=== PATIENT | female | born 1975 | race Caucasian/White ===

== ENCOUNTER 2019-03-17 12:37 | Emergency (ER) | payer MEDICAID ==
[~2019-03-17] VITALS: Ht 160 cm; Wt 114.4 kg
[~2019-03-17 12:37] MED LIST: BENA10TA25 PO
[2019-03-17 12:38] VITALS: BP 125/69
[2019-03-17 12:39] VITALS: BP 125/69
--- NOTE | 2019-03-17 12:50 | NUR ---
PATIENT AMBULATED TO BED 7.
--- NOTE | 2019-03-17 13:00 | NUR ---
43 Y FEMALE BIB FAMILY C/O INTERMITENT LOWER BACK PAIN X 3 MONTHS. DENIES TRAUMA OR INJURY. LOWER ABDOMINAL PAIN X 1 WEEK. DENIES N/V/D OR DYSURIA. LAST BM THIS AM, NORMAL. BOWEL SOUNDS ACTIVE IN ALL 4 QUADRANTS. ABDOMEN SOFT AND ROUND. VSS AT THIS TIME, AA0X4. PAIN 7/10. BED IS DOWN, LOCKED, BED RAIL X1, ERMD TO SEE PT. MED HX: HTN MED: BENAZEPRIL
--- NOTE | 2019-03-17 13:15 | NUR ---
DR CARDOZA AT BEDSIDE
--- NOTE | 2019-03-17 13:24 | NUR ---
LAB AT BEDSIDE
--- NOTE | 2019-03-17 13:26 | NUR ---
Patient taken to CT scan via wheelchair by tech.
--- NOTE | 2019-03-17 13:27 | NUR ---
PT BEING TAKEN TO CT VIA WHEELCHAIR
--- NOTE | 2019-03-17 13:36 | NUR ---
PT RETURNED FROM CT, AA0X4.
[2019-03-17 13:38] LABS: BILIRUBIN,URINE NEGATIVE (NEGATIVE); COLOR,URINE YELLOW (YELLOW); LEUKOCYTE ESTERASE ,URINE NEGATIVE (NEGATIVE); NITRITE, URINE NEGATIVE (NEGATIVE); UGLUCOSE NEGATIVE (NEGATIVE)
[2019-03-17 13:39] LABS: BASOPHILS % (AUTO) 0.5 % (0.0-2.0); EOSINOPHILS # (AUTO) 0.1 K/uL (0-0.4); EOSINOPHILS % (AUTO) 1.4 % (0.0-4.0); HEMATOCRIT 33.5 % (36-48); HEMOGLOBIN 11.2 g/dL (12.0-16.0); LYMPHOCYTES # (AUTO) 2.1 K/uL (2.5-16.5); LYMPHOCYTES % (AUTO) 22.9 % (20.5-51.1); MEAN CORPUSCULAR HEMOGLOBIN 29 pg (27-31); MEAN CORPUSCULAR HGB CONC 33 g/dL (33-37); MEAN CORPUSCULAR VOLUME 88.2 fL (80-94); MONOCYTES # (AUTO) 0.7 K/uL (0.8-1.0); MONOCYTES % (AUTO) 7.2 % (1.7-9.3); NEUTROPHILS # (AUTO) 6.4 K/uL (1.8-7.7); PLATELET COUNT (AUTO) 326 K/uL (140-450); RED CELL DISTRIBUTION WIDTH 14.5 % (11.6-13.7); WHITE BLOOD COUNT (AUTO) 9.4 K/uL (4.8-10.8)
[2019-03-17 13:48] LABS: APPEARANCE,URINE CLEAR (CLEAR); BLOOD, URINE 1+ (NEGATIVE); RBC,URINE 0-5 /HPF (0-5); WBC,URINE 0-5 /HPF (0-5)
[2019-03-17 14:11] LABS: ANION GAP 9.4 (8-16); CARBON DIOXIDE 29.6 mmol/L (21-32); CREATININE 0.7 mg/dL (0.6-1.3)
[2019-03-17 14:17] LABS: ALBUMIN 3.3 g/dL (3.4-5.0); TOTAL BILIRUBIN 0.3 mg/dL (0.0-1.0)
--- NOTE | 2019-03-17 14:42 | NUR ---
Patient discharged BY DR CARDOZA. Written and verbal after care instructions given and explained BY DR CARDOZA. Patient alert, oriented AND Ambulatory with steady gait. ID band removed. Rx of MILK OF MAGNESIA given.
--- NOTE | 2019-03-17 14:42 | NUR ---
Dr. Martinez re-evaluating patient at bedside.
== END 2019-03-17 14:42 | disposition home or self-care (01) ==
LOC: MED 12:37
DX: K59.00 Constipation, unspecified (principal); M54.9 Dorsalgia, unspecified; I10 Essential (primary) hypertension; Z79.899 Other long term (current) drug therapy
CPT/HCPCS: 36415; 80053; 81001; 81025; 82150; 83690; 85025; 99284